=== PATIENT | male | born 2000 | race Two or more races ===

== ENCOUNTER 2022-03-21 13:47 | Emergency (ER) | payer OTHER ==
[~2022-03-21] VITALS: Ht 167.6 cm; Wt 81.6 kg
--- NOTE | 2022-03-21 14:00 | NUR ---
Received pt 21 yrs male came from home c/o lauceration lt litel finger from [employer] today
[2022-03-21 14:07] VITALS: BP 106/50
[2022-03-21] MEDS ORDERED: LIDOCAINE 1% INJ 50 ML MDV IJ ONE ×2 (14:51→15:15)
[2022-03-21] MEDS ORDERED: TDAP [DIPH/PERTUSSIS/TET] 0.5 ML VIAL IM ONE (15:15)
[2022-03-21] MEDS: LIDOCAINE 1% INJ 50 ML MDV IJ ONE (15:16)
[2022-03-21] MEDS: TDAP [DIPH/PERTUSSIS/TET] 0.5 ML VIAL IM ONE (15:19)
--- NOTE | 2022-03-21 15:35 | NUR ---
WOUND CARE DONE AT BEDSIDE
--- NOTE | 2022-03-21 15:44 | NUR ---
Patient discharged to home in stable condition. Written and verbal after care instructions given. Patient verbalizes understanding of instruction.
== END 2022-03-21 15:46 | disposition home or self-care (01) ==
LOC: ER 13:54
DX: S61.210A Laceration without foreign body of right index finger without damage to nail, initial encounter (principal); X58.XXXA Exposure to other specified factors, initial encounter; Y93.89 Activity, other specified; Y92.89 Other specified places as the place of occurrence of the external cause; Y99.8 Other external cause status
CPT/HCPCS: 99283; 12001; 90471; 90715; J3490 ×2; A6403